=== PATIENT | male | born 1995 | race Caucasian/White ===

== ENCOUNTER → 2024-11-17 | Outpatient (CLI) | payer BC ==
--- NOTE | 2024-11-17 09:27 | XR ---
EXAMINATION TYPE: XR chest 2V DATE OF EXAM: 11/17/2024 9:23 AM COMPARISON: None TECHNIQUE: XR chest 2V Frontal and lateral views of the chest. CLINICAL INDICATION:Male, 29 years old with history of R06.00 DYSPNEA; FINDINGS: Lungs/Pleura: There is no evidence of pleural effusion, focal consolidation, or pneumothorax. Pulmonary vascularity: Unremarkable. Heart/mediastinum: Cardiomediastinal silhouette is unremarkable. Musculoskeletal: No acute osseous pathology. IMPRESSION: No acute cardiopulmonary disease/process. [facility], , 11/17/2024 9:25 AM
[2024-11-17 11:06] LABS: ALT 20 U/L (4-49); AST 21 U/L (17-59); African American GFR (CKD) >90 (>60 ml/min/1.73 sqM); Albumin 4.5 g/dL (3.5-5.0); Alkaline Phosphatase 49 U/L (38-126); Anion Gap 9 mmol/L; Blood Urea Nitrogen 17 mg/dL (9-20); Calcium 9.7 mg/dL (8.4-10.2); Carbon Dioxide 25 mmol/L (22-30); Chloride 106 mmol/L (98-107); Glucose 94 mg/dL (74-99); Non-African American GFR(CKD) >90 (>60 ml/min/1.73 sqM); Potassium 4.7 mmol/L (3.5-5.1); Sodium 140 mmol/L (137-145); Total Bilirubin 0.7 mg/dL (0.2-1.3); Total Protein 7.3 g/dL (6.3-8.2)
[2024-11-17 11:14] LABS: Basophils # (A) 0.04 10*3/uL (0.00-0.10); Basophils % (A) 0.8 %; Eosinophils # (A) 0.13 10*3/uL (0.04-0.35); Eosinophils % (A) 2.7 %; HCT 45.1 % (39.6-50.0); Lymphocytes # (A) 1.41 10*3/uL (0.90-5.00); Lymphocytes % (A) 29.4 %; MCH 27.8 pg (27.0-32.0); MCHC 33.3 g/dL (32.0-37.0); MCV 83.5 fL (80.0-97.0); Monocytes # (A) 0.37 10*3/uL (0.20-1.00); Monocytes % (A) 7.7 %; Neutrophils # (A) 2.82 10*3/uL (1.80-7.70); Platelet Count 284 10*3/uL (140-440); RDW 12.7 % (11.5-14.5); WBC 4.79 10*3/uL (4.50-10.00)
[2024-11-17 15:02] LABS: Chol/HDL Ratio 5.77 Ratio; LDL Cholesterol,Calculated 123.7 mg/dL (0.0-131.0)
== END ==
LOC: CPPFTMAIN 08:23
PROVIDERS: ATTEND Internal Medicine
DX: Z00.00 Encounter for general adult medical examination without abnormal findings (principal); Z11.59 Encounter for screening for other viral diseases; R06.00 Dyspnea, unspecified; R51.9 Headache, unspecified
CPT/HCPCS: 71046; 80053; 80061; 83735; 84443; 85025; 86803; 94060; 94726; 94729